=== PATIENT | male | born 1980 | race American Indian/Alaskan Native ===

== ENCOUNTER 2020-03-11 03:48 | Emergency (ER) | payer SELFPAY ==
[2020-03-11 04:20] VITALS: BP 140/98
== END 2020-03-11 04:15 | disposition left against medical advice (07) ==
LOC: ED 03:48
DX: S69.90XA Unspecified injury of unspecified wrist, hand and finger(s), initial encounter (principal); Z53.21 Procedure and treatment not carried out due to patient leaving prior to being seen by health care provider; X58.XXXA Exposure to other specified factors, initial encounter; Y93.89 Activity, other specified; Y92.89 Other specified places as the place of occurrence of the external cause; Y99.8 Other external cause status

== ENCOUNTER 2020-09-14 23:04 | Emergency (ER) | payer SELFPAY ==
[2020-09-14 23:52] VITALS: BP 119/70
[2020-09-15] MEDS ORDERED: ASPIRIN 325 MG TAB PO ONE (00:08)
== END 2020-09-15 00:10 | disposition left against medical advice (07) ==
LOC: ED 23:04
DX: R07.89 Other chest pain (principal); Z53.21 Procedure and treatment not carried out due to patient leaving prior to being seen by health care provider